=== PATIENT | male | born 1945 | race Caucasian/White ===

== ENCOUNTER 2018-12-06 07:15 | Emergency (ER) | payer MEDICARE ==
[~2018-12-06] VITALS: Ht 165.1 cm; Wt 85.0 kg
[2018-12-06] MEDS ORDERED: SOD CHLORIDE 0.9% 1,000 ML IV STA ×2 (07:23→12:20)
[2018-12-06] MEDS ORDERED: DIPHTH/TET/ACEL PERTUSS (ADULT) 0.5 ML VIAL IM* ONE (07:30)
[2018-12-06 07:34] VITALS: Ht 165.1 cm; Wt 85.0 kg
[2018-12-06] MEDS ORDERED: ASPIRIN 325 MG TAB PO STA (09:21)
--- NOTE | 2018-12-06 10:02 | ERD ---
ER Documentation Chief Complaint Chief Complaint USMAN ELI, HAS SCALP LAC HPI This is a 73-year-old male, [place]o-speaking, that was brought into the emergency department by EMS after he had an unwitnessed fall. The patient had been sitting on a couch. His stated she saw the patient lying on the floor awake and alert with a laceration to the back of his head as he had hit a glass TV cabinet table. The patient stated he does not have a headache. He has no chest pain. He has no shortness of breath. He denies any neck pain. He is not on blood thinners. He does smoke tobacco. He denies alcohol use. EMS indicated that the patient was able to ambulate but was hypotensive and received IV fluids with improvement of his blood pressure. ROS All systems reviewed and are negative except as per history of present illness. PMhx/Soc Smoking Status: Unknown if ever smoked Physical Exam Vitals Vital Signs Date Temp Pulse Resp B/P (MAP) Pulse Ox O2 O2 Flow FiO2 Time Delivery Rate 12/06/18 78 18 102/65 99 Room Air 09:07 (77) 12/06/18 97.8 68 18 104/55 94 07:34 (71) Physical Exam Constitutional:Well-developed. Well-nourished. HEENT:Normocephalic. V-shaped laceration of the posterior scalp with no exposure of the calvarium 2 cm x 2 cm..Pupils were equal round reactive to light. Dry mucous membranes.No tonsillar exudates. Neck: No nuchal rigidity. No lymphadenopathy. No posterior cervical spine tenderness or step-offs. Respiratory: Not using accessory muscles of respiration.Lungs were clear to auscultation bilaterally. No rhonchi. No rales. No wheezing. Cardiovascular: Regular rate regular rhythm.No murmurs. No rubs were appreciated.S1, S2 normal. Distal pulses are palpable 2+ bilaterally. GI: Abdomen was obese. Nontender. Non Distended. No pulsatile abdominal masses or bruits. No rebound. No guarding. Bowel sounds were present and normal. Muscle skeletal: Full range of motion of both the upper and lower extremities bilaterally.Normal muscle tone.No assymetrical calf tenderness or swelling. Skin: No petechia, no purpura. No lesions on the palms or the soles of the feet. No maculopapular rash. NEURO: Patient was alert, awake, orientated to person place but not to time as he believed it was 1918.No facial droop. Gait observed and normal with no ataxia.Speech had regular rate and rhythm. No focal neurological deficits. Result Diagram: 12/06/18 0745 12/06/18 0745 Results 24 hrs Laboratory Tests Test 12/06/18 07:45 White Blood Count 12.9 10^3/ul Red Blood Count 3.57 10^6/ul Hemoglobin 11.5 g/dl Hematocrit 32.7 % Mean Corpuscular Volume 91.6 fl Mean Corpuscular Hemoglobin 32.2 pg Mean Corpuscular Hemoglobin Concent 35.2 g/dl Red Cell Distribution Width 13.5 % Platelet Count 207 10^3/UL Mean Platelet Volume 9.9 fl Immature Granulocytes % 0.500 % Neutrophils % 78.2 % Lymphocytes % 10.2 % Monocytes % 10.0 % Eosinophils % 0.8 % Basophils % 0.3 % Nucleated Red Blood Cells % 0.0 /100WBC Immature Granulocytes # 0.060 10^3/ul Neutrophils # 10.1 10^3/ul Lymphocytes # 1.3 10^3/ul Monocytes # 1.3 10^3/ul Eosinophils # 0.1 10^3/ul Basophils # 0.0 10^3/ul Nucleated Red Blood Cells # 0.0 10^3/ul Prothrombin Time 13.6 Sec Prothrombin Time Ratio 1.1 INR International Normalized Ratio 1.03 Activated Partial Thromboplast Time 22.1 Sec Sodium Level 136 mmol/L Potassium Level 3.7 mmol/L Chloride Level 100 mmol/L Carbon Dioxide Level 24 mmol/L Anion Gap 12 Blood Urea Nitrogen 30 mg/dl Creatinine 1.91 mg/dl Est Glomerular Filtrat Rate mL/min mL/min Glucose Level 192 mg/dl Calcium Level 9.4 mg/dl Total Bilirubin 1.0 mg/dl Direct Bilirubin 0.00 mg/dl Indirect Bilirubin 1.0 mg/dl Aspartate Amino Transf (AST/SGOT) 67 IU/L Alanine Aminotransferase (ALT/SGPT) 24 IU/L Alkaline Phosphatase 67 IU/L Troponin I 23.600 ng/ml Total Protein 6.7 g/dl Albumin 3.9 g/dl Globulin 2.80 g/dl Albumin/Globulin Ratio 1.39 Ethyl Alcohol Level < 10.0 mg/dl Current Medications Medications Dose Sig/Gerald Start Time Status Last (Trade) Ordered Route PRN Stop Time Admin Dose Reason Admin Sodium 1,000 ml @ Q1H STAT 12/06/18 DC 12/06/18 Chloride 1,000 mls/hr IV 07:23 07:49 12/06/18 08:22 Diphtheria/ 0.5 ml ONCE ONCE 12/06/18 DC Tetanus/Acell IM* 07:30 Pertussis 12/06/18 07:31 (Adacel) Aspirin 325 mg ONCE STAT 12/06/18 DC (Aspirin) PO 09:21 12/06/18 09:23 Procedures/MDM This is 73-year-old male that presented to the emergency department with an unwitnessed fall. The patient stated it was a slip and fall and appeared to be mechanical. The patient did have a CT scan of his head which showed no intercerebral hemorrhage mass-effect or midline shift. The wound was irrigated using high-pressure normal saline. There is no exposure of the calvarium or foreign body. 6 letitia were used to oppose the V-shaped wound. Patient had 3 cc of lidocaine without epinephrine used to provide analgesia prior to the letitia being placed. I obtained ancillary laboratory work as the patient was hypotensive with signs of clinical dehydration. IV fluids was given the patient had improvement of his hypotension. The patient had prerenal azotemia. The patient had mild leukocytosis. The patient had a significant elevated troponin of 23. However the patient was not expressing active chest pain. 12 Lead EKG tracing ordered and reviewed by myself showed: Normal sinus rhythm of 85 bpm and no arrhythmia. TX interval prolonged in all leads at 254 ms consistent with a first-degree AV block QRS duration 166 ms with a right bundle branch block. No ST segment elevation No ST segment depression. No changes consistent with acute ischemia. Repeat EKG taken at 903 compared to the first EKG taken at 755 still indicated a sinus rhythm of 82 bpm patient still had a right bundle branch block with TX interval prolonged at 254 ms. There is no underlying ST segment elevation or depression. Given that her [employer] is currently closed the patient will require to be transferred for higher level of care. I spoke with the charge nurse at [facility]. The patient will be transferred via ambulance in serious condition. He did receive aspirin in the emergency department. Again the patient remained chest pain-free during his entire emergency room visit. Critical Care: Time: 65 minutes Treatments/Evaluations: Close monitoring and treatment of unstable vital signs, cardiorespiratory, and neurologic status, while maintaining tight balance of fluid, respiratory, and cardiac interventions. Time does not include performing any of the above billable procedures. Departure Diagnosis: Primary Impression: Scalp laceration Encounter type: initial encounter Qualified Codes: S01.01XA - Laceration without foreign body of scalp, initial encounter Additional Impressions: Non-STEMI (non-ST elevated myocardial infarction) Prerenal azotemia Condition: Serious ANA CRISTINA RCIK MD Dec 06, 2018 09:56
[2018-12-06] MEDS ORDERED: LEVO50TA7 PO (13:56)
[2018-12-06] MEDS ORDERED: ACET1TAB40 PO (13:56)
[2018-12-06] MEDS ORDERED: TRAM50TA PO (13:57)
[2018-12-06] MEDS ORDERED: CHOL200056 PO (13:57)
[2018-12-06] MEDS ORDERED: METF850T13 PO (13:58)
[2018-12-06] MEDS ORDERED: SUVO10TA2 PO (13:58)
[2018-12-06] MEDS ORDERED: RANI150T5 PO (13:58)
[2018-12-06] MEDS ORDERED: FURO20TA3 PO (13:59)
[2018-12-06] MEDS ORDERED: METO-319 PO (13:59)
[2018-12-06] MEDS ORDERED: LOSA1TAB28 PO (13:59)
[2018-12-06] MEDS ORDERED: DULO60CA59 PO (14:00)
[2018-12-06] MEDS ORDERED: SAXA5TAB2 PO (14:00)
[2018-12-06] MEDS ORDERED: GLIM1TAB2 PO (14:01)
[2018-12-06] MEDS ORDERED: RSV10T PO (14:01)
[2018-12-06] MEDS ORDERED: LINA290C PO (14:01)
[2018-12-06] MEDS ORDERED: ASPI-817 PO (14:02)
[2018-12-06] MEDS ORDERED: SPIR25TA PO (14:02)
[2018-12-06] MEDS ORDERED: FER325 PO (14:02)
[2018-12-06] MEDS ORDERED: ALLO100T PO (14:03)
[2018-12-06 14:10] VITALS: BP 101/61; PULSE 82; RESP 18
== END 2018-12-06 14:48 | disposition short-term general hospital (02) ==
LOC: E/R 07:15
DX: S01.01XA Laceration without foreign body of scalp, initial encounter (principal); I21.4 Non-ST elevation (NSTEMI) myocardial infarction; R79.89 Other specified abnormal findings of blood chemistry; F17.210 Nicotine dependence, cigarettes, uncomplicated; R40.2142 Coma scale, eyes open, spontaneous, at arrival to emergency department; R40.2252 Coma scale, best verbal response, oriented, at arrival to emergency department; R40.2362 Coma scale, best motor response, obeys commands, at arrival to emergency department; W25.XXXA Contact with sharp glass, initial encounter; Y92.9 Unspecified place or not applicable; Z23 Encounter for immunization
CPT/HCPCS: 12001; 36415; 70450; 71045; 80053; 80307; 84484; 85025; 85610; 85730; 90471; 90715; 93005; 99285; J7030